=== PATIENT | male | born 1970 | race African-American/Black ===

== ENCOUNTER 2022-02-08 01:04 | Emergency (ER) | payer MEDICAID, OTHER ==
[~2022-02-08] VITALS: Ht 180 cm; Wt 75.0 kg
--- NOTE | 2022-02-08 01:19 | ED General ---
General Stated Complaint: MEDICAL CLEARANCE Source of Information: Patient (NATALIE,DARLENE Garner DO) History of Present Illness Date Seen by Provider: Feb 08, 2022 Time Seen by Provider: 01:15 Initial Comments 51-year-old male presents with the [facility] mental health provider. She apparently has already done a screening and is looking for placement for him in [place] for paranoia and detox. He uses methamphetamine, occasional alcohol and marijuana. He is very paranoid and fixated on the fact that he stole a cell phone from some people and thinks that they are after him. He was in the waiting room and the door open to bring another patient back he crawled out of the chair thinking that they were going to "get me." He did tell the psychiatric screener that if the police did not help him that he was either going to "go after those people are put a gun in his mouth." He explicitly denied any suicidal or homicidal thoughts or actions to me when asked directly. He denies any medical concerns at this time. He is currently voluntary. He has used methamphetamine today. (DARLENE ESTRADA DO) Allergies and Home Medications Allergies Coded Allergies: No Known Drug Allergies (Unverified , 02/08/22) Patient Home Medication List Home Medication List Reviewed: Yes (DARLENE ESTRADA DO) Review of Systems Review of Systems Constitutional: no symptoms reported EENTM: no symptoms reported Respiratory: no symptoms reported Cardiovascular: no symptoms reported Gastrointestinal: no symptoms reported Genitourinary: no symptoms reported Musculoskeletal: no symptoms reported Skin: no symptoms reported Psychiatric/Neurological: Anxiety, Other (Paranoia) Hematologic/Lymphatic: No Symptoms Reported Immunological/Allergic: no symptoms reported (DARLENE ESTRADA DO) Past Wjwbqne-Yetnyh-Kuqobi Hx Patient Social History Tobacco Use?: Yes Use of E-Cig and/or Vaping dev: No Substance use?: Yes Substance type: Amphetamines, Marijuana Alcohol Use?: Yes Alcohol type: Beer (DARLENE ESTRADA DO) Family Medical History Reviewed Nursing Family Hx (DARLENE ESTRADA DO) No Pertinent Family Hx (DARLENE ESTRADA DO) Physical Exam Vital Signs Vital Signs - First Documented 02/08/22 01:24 Temp 36.7 Pulse 106 Resp 20 B/P (MAP) 142/128 (133) Pulse Ox 99 O2 Delivery Room Air (JOHANNE MCNEAL MD) Vital Signs Capillary Refill : (NATALIE,DARLENE L DO) Height, Weight, BMI Height: '" Weight: lbs. oz. kg; BMI Method: General Appearance: No Apparent Distress, WD/WN, Other (Patient has pressured speech, paranoia) HEENT: PERRL/EOMI, Normal ENT Inspection, Pharynx Normal Neck: Full Range of Motion, Normal Inspection, Non Tender, Supple Respiratory: Lungs Clear, Normal Breath Sounds, No Accessory Muscle Use, No Respiratory Distress Cardiovascular: No Edema, No Gallop, No JVD, No Murmur, Normal Peripheral Pulses, Tachycardia Gastrointestinal: Normal Bowel Sounds, No Organomegaly, No Pulsatile Mass, Non Tender, Soft Back: Normal Inspection, No Vertebral Tenderness Extremity: Normal Capillary Refill, Normal Inspection, No Pedal Edema Neurologic/Psychiatric: Alert, Oriented x3, No Motor/Sensory Deficits, Normal Mood/Affect, picker packer II-XII Norm as Tested Skin: Normal Color, Warm/Dry (NATALIE,DARLENE L DO) Progress/Results/Core Measures Suspected Sepsis SIRS Temperature: Pulse: Respiratory Rate: Laboratory Tests 02/08/22 01:52: White Blood Count 6.6 Blood Pressure / Mean: Laboratory Tests 02/08/22 01:52: Creatinine 0.93, Platelet Count 302, Total Bilirubin 0.2 (NATALIE,DARLENE L DO) Results/Orders Lab Results Laboratory Tests Test 02/08/22 01:35 02/08/22 01:52 Range/Units Urine Color YELLOW Urine Clarity CLEAR Urine pH 6.0 5-9 Urine Specific [place] >=1.030 1.016-1.022 Urine Protein NEGATIVE NEGATIVE Urine Glucose (UA) NEGATIVE NEGATIVE Urine Ketones NEGATIVE NEGATIVE Urine Nitrite NEGATIVE NEGATIVE Urine Bilirubin NEGATIVE NEGATIVE Urine Urobilinogen 1.0 < = 1.0 MG/DL Urine Leukocyte Esterase NEGATIVE NEGATIVE Urine RBC (Auto) NEGATIVE NEGATIVE Urine RBC NONE /HPF Urine WBC NONE /HPF Urine Squamous Epithelial Cells RARE /HPF Urine Crystals NONE /LPF Urine Bacteria NEGATIVE /HPF Urine Casts NONE /LPF Urine Mucus SMALL H /LPF Urine Culture Indicated NO Urine Opiates Screen NEGATIVE NEGATIVE Urine Oxycodone Screen NEGATIVE NEGATIVE Urine Methadone Screen NEGATIVE NEGATIVE Urine Propoxyphene Screen NEGATIVE NEGATIVE Urine Barbiturates Screen NEGATIVE NEGATIVE Ur Tricyclic Antidepressants Screen NEGATIVE NEGATIVE Urine Phencyclidine Screen NEGATIVE NEGATIVE Urine Amphetamines Screen POSITIVE H NEGATIVE Urine Methamphetamines Screen POSITIVE H NEGATIVE Urine Benzodiazepines Screen NEGATIVE NEGATIVE Urine Cocaine Screen NEGATIVE NEGATIVE Urine Cannabinoids Screen POSITIVE H NEGATIVE White Blood Count 6.6 4.3-11.0 10^3/uL Red Blood Count 3.91 L 4.30-5.52 10^6/uL Hemoglobin 11.0 L 13.3-17.7 g/dL Hematocrit 35 L 40-54 % Mean Corpuscular Volume 91 80-99 fL Mean Corpuscular Hemoglobin 28 25-34 pg Mean Corpuscular Hemoglobin Concent 31 L 32-36 g/dL Red Cell Distribution Width 13.0 10.0-14.5 % Platelet Count 302 130-400 10^3/uL Mean Platelet Volume 9.5 9.0-12.2 fL Immature Granulocyte % (Auto) 0 % Neutrophils (%) (Auto) 50 42-75 % Lymphocytes (%) (Auto) 37 12-44 % Monocytes (%) (Auto) 11 0-12 % Eosinophils (%) (Auto) 1 0-10 % Basophils (%) (Auto) 0 0-10 % Neutrophils # (Auto) 3.3 1.8-7.8 10^3/uL Lymphocytes # (Auto) 2.5 1.0-4.0 10^3/uL Monocytes # (Auto) 0.7 0.0-1.0 10^3/uL Eosinophils # (Auto) 0.1 0.0-0.3 10^3/uL Basophils # (Auto) 0.0 0.0-0.1 10^3/uL Immature Granulocyte # (Auto) 0.0 0.0-0.1 10^3/uL Sodium Level 140 135-145 MMOL/L Potassium Level 3.5 L 3.6-5.0 MMOL/L Chloride Level 107 98-107 MMOL/L Carbon Dioxide Level 24 21-32 MMOL/L Anion Gap 9 5-14 MMOL/L Blood Urea Nitrogen 15 7-18 MG/DL Creatinine 0.93 0.60-1.30 MG/DL Estimat Glomerular Filtration Rate 99 BUN/Creatinine Ratio 16 Glucose Level 113 H 70-105 MG/DL Calcium Level 9.2 8.5-10.1 MG/DL Corrected Calcium 9.4 8.5-10.1 MG/DL Total Bilirubin 0.2 0.1-1.0 MG/DL Aspartate Amino Transf (AST/SGOT) 20 5-34 U/L Alanine Aminotransferase (ALT/SGPT) 18 0-55 U/L Alkaline Phosphatase 89 40-136 U/L Total Protein 7.3 6.4-8.2 GM/DL Albumin 3.7 3.2-4.5 GM/DL Salicylates Level < 5.0 L 5.0-20.0 MG/DL Acetaminophen Level < 10 L 10-30 UG/ML Serum Alcohol < 10 <10 MG/DL SARS-CoV-2 RNA (RT-PCR) Not Detected Not Detecte (JOHANNE MCNEAL MD) My Orders Orders - JOHANNE MCNEAL MD General/Regular (02/08/22 Breakfast) (JOHANNE MCNEAL MD) Vital Signs/I&O 02/08/22 02/08/22 01:24 07:05 Temp 36.7 36.2 Pulse 106 78 Resp 20 16 B/P (MAP) 142/128 (133) 131/97 (108) Pulse Ox 99 99 O2 Delivery Room Air Room Air (JOHANNE MCNEAL MD) Vital Signs/I&O Capillary Refill : (DARLENE ESTRADA DO) Progress Note : Time: 15:46 Progress Note Case discussed with Dr. Arroyo for the [facility]. He indicated that he would like an affidavit done patient for transfer. He accepts at this time (JOHANNE MCNEAL MD) ECG EKG : Comment Sinus rhythm. 92 bpm. Normal intervals. Normal axis. No ST or T wave abnormalities. No ectopy. No STEMI. (DARLENE ESTRADA DO) Initial ECG Impression Date: Feb 08, 2022 Initial ECG Impression Time: 15:47 Initial ECG Rate: 92 Initial ECG Rhythm: Normal Sinus Initial ECG Intervals: Normal Initial ECG Intervals ID 114 QRS 84 Qtc 444 Initial ECG Impression: Normal (JOHANNE MCNEAL MD) Departure Communication (Admissions) Patient rested comfortably throughout the evening without any complications. We are waiting on [facility] to call back regarding possible placement. (DARLENE ESTRADA DO) Impression Primary Impression: Psychosis Qualified Codes: F29 - Unspecified psychosis not due to a substance or known physiological condition Additional Impressions: Paranoia Methamphetamine abuse Disposition: 02 XFER SHT-TRM HOSP Condition: Stable Transfer Transfer Reason: Exceeds level of care Time Spoke to Accepting Phy: 15:40 Transfer Progress Notes Discussed with Dr Arroyo - Psychiatry @ [facility] in [place] Transfer Facility: [facility] Method of Transfer: Private Vehicle (JOHANNE MCNEAL MD) Departure-Patient Inst. Referrals: NO,LOCAL PHYSICIAN (PCP/Family) Primary Care Physician DARLENE ESTRADA DO Feb 08, 2022 01:19 JOHANNE MCNEAL MD Feb 08, 2022 15:50
[2022-02-08] MEDS ORDERED: OLANZapine 5 MG ODT (ZyPREXA ZYDIS) PO ONE (01:45)
[2022-02-08 01:47] LABS: BILIRUBIN,URINE NEGATIVE (NEGATIVE); COLOR,URINE YELLOW; GLUCOSE, URINE (UA) NEGATIVE (NEGATIVE); KETONES,URINE NEGATIVE (NEGATIVE); LEUKOCYTE ESTERASE ,URINE NEGATIVE (NEGATIVE); NITRITE,URINE NEGATIVE (NEGATIVE); PROTEIN,URINE NEGATIVE (NEGATIVE)
[2022-02-08 01:54] LABS: BACTERIA,URINE NEGATIVE /HPF; CLARITY,URINE CLEAR; SQUAMOUS EPITHELIAL CELL,UR RARE /HPF
[2022-02-08 01:58] LABS: AMPHETAMINE SCREEN, URINE POSITIVE (NEGATIVE); BARBITURATE SCREEN URINE NEGATIVE (NEGATIVE); BENZODIAZEPINES SCREEN URINE NEGATIVE (NEGATIVE); CANNABINOID SCREEN, URINE POSITIVE (NEGATIVE); COCAINE SCREEN URINE NEGATIVE (NEGATIVE); METHADONE STAT NEGATIVE (NEGATIVE); OPIATE SCREEN URINE NEGATIVE (NEGATIVE); OXYCODONE STAT NEGATIVE (NEGATIVE); PROPOXYPHENE STAT NEGATIVE (NEGATIVE); TRICYCLIC ANTIDEPRESSANTS SCRE NEGATIVE (NEGATIVE)
[2022-02-08 01:59] LABS: BASOPHILS % (AUTO) 0 % (0-10); EOSINOPHILS # (AUTO) 0.1 10^3/uL (0.0-0.3); EOSINOPHILS % (AUTO) 1 % (0-10); HEMATOCRIT 35 % (40-54); LYMPHOCYTES # (AUTO) 2.5 10^3/uL (1.0-4.0); LYMPHOCYTES % (AUTO) 37 % (12-44); MEAN CORPUSCULAR HEMOGLOBIN 28 pg (25-34); MEAN CORPUSCULAR HGB CONC 31 g/dL (32-36); MEAN CORPUSCULAR VOLUME 91 fL (80-99); MEAN PLATELET VOLUME 9.5 fL (9.0-12.2); MONOCYTES # (AUTO) 0.7 10^3/uL (0.0-1.0); MONOCYTES % (AUTO) 11 % (0-12); NEUTROPHILS # (AUTO) 3.3 10^3/uL (1.8-7.8); NEUTROPHILS % (AUTO) 50 % (42-75); PLATELET COUNT 302 10^3/uL (130-400); WHITE BLOOD COUNT 6.6 10^3/uL (4.3-11.0)
[2022-02-08 02:19] LABS: ALBUMIN 3.7 GM/DL (3.2-4.5); CHLORIDE 107 MMOL/L (98-107); POTASSIUM 3.5 MMOL/L (3.6-5.0); SODIUM 140 MMOL/L (135-145)
[2022-02-08 02:20] LABS: CALCIUM 9.2 MG/DL (8.5-10.1)
[2022-02-08 02:21] LABS: GLUCOSE 113 MG/DL (70-105); TOTAL PROTEIN 7.3 GM/DL (6.4-8.2)
[2022-02-08 02:22] LABS: CARBON DIOXIDE 24 MMOL/L (21-32)
[2022-02-08 02:23] LABS: BILIRUBIN,TOTAL 0.2 MG/DL (0.1-1.0)
[2022-02-08 02:25] LABS: ALKALINE PHOSPHATASE 89 U/L (40-136); CREATININE SERUM 0.93 MG/DL (0.60-1.30); GFR ESTIMATED 99
[2022-02-08 02:26] LABS: BUN/CREATININE RATIO 16
[2022-02-08 02:28] LABS: ALANINE AMINOTRANSFERASE 18 U/L (0-55); SALICYLATE < 5.0 MG/DL (5.0-20.0)
[2022-02-08 02:29] LABS: ACETAMINOPHEN < 10 UG/ML (10-30)
[2022-02-08 17:34] VITALS: BP 123/90
== END 2022-02-08 17:34 | disposition short-term general hospital (02) ==
LOC: ER 01:10
DX: F22 Delusional disorders (principal); F29 Unspecified psychosis not due to a substance or known physiological condition; F15.10 Other stimulant abuse, uncomplicated; Z20.822 Contact with and (suspected) exposure to COVID-19
CPT/HCPCS: 36415; 80053; 80306; 80320; 80329; 81000; 85025; 87636; 93005